=== PATIENT | male | born 1955 | race Caucasian/White ===

== ENCOUNTER 2021-04-22 10:06 | Inpatient (IN) | payer OTHER ==
[2021-04-22 14:18] VITALS: BMI 22.2
[2021-04-22] MEDS ORDERED: MAGNESIUM CITRATE 300 ML BOTTLE PO PRN (16:10)
[2021-04-22] MEDS ORDERED: MAG HYDROX/AL HYDROX/SIMETH 30 ML UNIT-DOSE CUP PO PRN (16:10)
[2021-04-22] MEDS ORDERED: NICOTINE 10 MG CARTRIDGE (INHALER) IH PRN (16:10)
[2021-04-22] MEDS ORDERED: P-EPHED 60MG/TRIPROLIDI 2.5MG TABLET PO PRN (16:10)
[2021-04-22] MEDS ORDERED: guaiFENesin 200 MG/10 ML 10 ML UNIT-DOSE CUPS PO PRN (16:10)
[2021-04-22] MEDS ORDERED: ACETAMINOPHEN 325 MG TABLET (FP) PO PRN (16:10)
[2021-04-22] MEDS ORDERED: LOPERAMIDE HCL 2 MG CAPSULE PO PRN (16:10)
[2021-04-22] MEDS ORDERED: TUBERCULIN PPD 5 TU/0.1ML VIAL ID ONE ×2 (18:53→22:28)
[2021-04-22] MEDS: hydrOXYzine PAMOATE 25 MG CAPSULE (FP) PO SCH ×2 (19:18→21:24)
[2021-04-22] MEDS: BUDESONIDE/FORMETEROL FUMARATE 80/4.5 mcg INHALER IH SCH (21:24)
[2021-04-22] MEDS: THIAMINE HCL 100 MG TABLET (FP) PO SCH (21:24)
[2021-04-22] MEDS: MELATONIN 5 MG TABLETS PO SCH (21:24)
[2021-04-23] MEDS: hydrOXYzine PAMOATE 25 MG CAPSULE (FP) PO SCH ×5 (06:39→22:11)
[2021-04-23] MEDS ORDERED: PT OWN MED DRAWER 7, Y5N ONE ×2 (07:20→08:48)
[2021-04-23] MEDS ORDERED: ALBUTEROL SO4 HFA INHALER IH ONE (07:22)
[2021-04-23] MEDS: ALBUTEROL SO4 HFA INHALER IH PRN (07:22)
[2021-04-23] MEDS: PRENATAL VITAMINS W/ FOLIC ACID TABLET (FP) PO SCH (09:36)
[2021-04-23] MEDS: NICOTINE 7 MG/24 HOURS TOPICAL PATCH TD SCH (09:37)
[2021-04-23] MEDS: BUDESONIDE/FORMETEROL FUMARATE 80/4.5 mcg INHALER IH SCH ×2 (09:37→22:11)
[2021-04-23] MEDS: predniSONE 20 MG TABLET (UD) PO SCH (10:54)
[2021-04-23] MEDS ORDERED: PNEUMOC 13-VAL CONJ-DIP CRM/PF 0.5 ML DISP.SYRIN IM ONE (12:00)
[2021-04-23] MEDS ORDERED: NICOTINE POLACRILEX 4 MG GUM BUC PRN (20:36)
[2021-04-23] MEDS: MELATONIN 5 MG TABLETS PO SCH (22:11)
[2021-04-23] MEDS: THIAMINE HCL 100 MG TABLET (FP) PO SCH (22:11)
[2021-04-24] MEDS: ALBUTEROL SO4 HFA INHALER IH PRN (07:11)
[2021-04-24] MEDS: hydrOXYzine PAMOATE 25 MG CAPSULE (FP) PO SCH ×5 (07:12→21:22)
[2021-04-24] MEDS: BUDESONIDE/FORMETEROL FUMARATE 80/4.5 mcg INHALER IH SCH ×2 (10:22→21:23)
[2021-04-24] MEDS: PRENATAL VITAMINS W/ FOLIC ACID TABLET (FP) PO SCH (10:23)
[2021-04-24] MEDS: BACITRACIN 0.9 GM PACKET TP SCH (10:25)
[2021-04-24] MEDS: GABAPENTIN 100 MG CAPSULE PO SCH ×3 (10:25→21:23)
[2021-04-24] MEDS: NICOTINE 7 MG/24 HOURS TOPICAL PATCH TD SCH (10:26)
[2021-04-24] MEDS: predniSONE 20 MG TABLET (UD) PO SCH (12:11)
[2021-04-24] MEDS: MAGNESIUM HYDROX 2400MG/30ML ORAL SUSPENSION 30 ML CUP PO PRN (12:36)
[2021-04-24] MEDS ORDERED: GABAPENTIN 100 MG CAPSULE PO SCH (14:00)
[2021-04-24] MEDS: IBUPROFEN 400 MG TABLET (FP) PO PRN (15:06)
[2021-04-24 18:24] LABS: HEMOGLOBIN 12.8 GM/dL (11.7-16.9); MCH 34.1 pg (25.7-33.7); MCHC 34.6 g/dl (32.0-35.9); MEAN CELL VOLUME 98.7 fl (80-96); MEAN PLT VOLUME 9.5 fl (7.5-11.1); PLATELET COUNT 159 10^3/uL (134-434); RBC 3.75 M/mm3 (4.00-5.60); RDW 13.2 % (11.9-15.9); WHITE BLOOD COUNT 8.8 K/mm3 (4.0-10.0)
[2021-04-24 18:42] LABS: CALCIUM 8.3 mg/dL (8.5-10.1)
[2021-04-24 18:43] LABS: ALBUMIN 3.1 g/dl (3.4-5.0)
[2021-04-24 18:46] LABS: CREATININE 0.7 mg/dL (0.55-1.3)
[2021-04-24 18:47] LABS: BILIRUBIN,TOTAL 0.4 mg/dL (0.2-1); TOT PROT 5.9 g/dl (6.4-8.2)
[2021-04-24 19:13] LABS: SYPHILIS W/ RPR CONF NON-REACTIVE (NONREACTIVE)
[2021-04-24 19:42] LABS: HIV INTERPRETATION NEGATIVE (NEGATIVE)
[2021-04-24] MEDS: THIAMINE HCL 100 MG TABLET (FP) PO SCH (21:22)
[2021-04-24] MEDS: MELATONIN 5 MG TABLETS PO SCH (21:22)
[2021-04-25] MEDS: hydrOXYzine PAMOATE 25 MG CAPSULE (FP) PO SCH ×5 (06:02→21:20)
[2021-04-25] MEDS: GABAPENTIN 100 MG CAPSULE PO SCH ×3 (06:02→21:20)
[2021-04-25] MEDS: BACITRACIN 0.9 GM PACKET TP SCH (09:51)
[2021-04-25] MEDS: NICOTINE 7 MG/24 HOURS TOPICAL PATCH TD SCH (09:51)
[2021-04-25] MEDS: BUDESONIDE/FORMETEROL FUMARATE 80/4.5 mcg INHALER IH SCH ×2 (09:51→21:21)
[2021-04-25] MEDS: PRENATAL VITAMINS W/ FOLIC ACID TABLET (FP) PO SCH (09:52)
[2021-04-25] MEDS: predniSONE 20 MG TABLET (UD) PO SCH (11:15)
[2021-04-25] MEDS: THIAMINE HCL 100 MG TABLET (FP) PO SCH (21:20)
[2021-04-25] MEDS: MELATONIN 5 MG TABLETS PO SCH (21:20)
[2021-04-26] MEDS: ALBUTEROL SO4 HFA INHALER IH PRN (06:23)
[2021-04-26] MEDS ORDERED: PT OWN MED DRAWER 7, Y5N ONE ×2 (06:24→19:41)
[2021-04-26] MEDS: hydrOXYzine PAMOATE 25 MG CAPSULE (FP) PO SCH ×5 (06:25→21:42)
[2021-04-26] MEDS: GABAPENTIN 100 MG CAPSULE PO SCH ×3 (06:25→21:43)
[2021-04-26] MEDS: PRENATAL VITAMINS W/ FOLIC ACID TABLET (FP) PO SCH (10:02)
[2021-04-26] MEDS: NICOTINE 7 MG/24 HOURS TOPICAL PATCH TD SCH (10:02)
[2021-04-26] MEDS: BACITRACIN 0.9 GM PACKET TP SCH (10:03)
[2021-04-26] MEDS: predniSONE 20 MG TABLET (UD) PO SCH (10:04)
[2021-04-26] MEDS: BUDESONIDE/FORMETEROL FUMARATE 80/4.5 mcg INHALER IH SCH ×2 (10:04→21:47)
[2021-04-26] MEDS: THIAMINE HCL 100 MG TABLET (FP) PO SCH (21:42)
[2021-04-26] MEDS: MELATONIN 5 MG TABLETS PO SCH (21:43)
[2021-04-27] MEDS: GABAPENTIN 100 MG CAPSULE PO SCH ×3 (06:37→21:37)
[2021-04-27] MEDS: hydrOXYzine PAMOATE 25 MG CAPSULE (FP) PO SCH ×5 (06:37→21:37)
[2021-04-27] MEDS: ALBUTEROL SO4 HFA INHALER IH PRN ×2 (06:39→17:56)
[2021-04-27] MEDS: predniSONE 20 MG TABLET (UD) PO SCH (10:19)
[2021-04-27] MEDS: PRENATAL VITAMINS W/ FOLIC ACID TABLET (FP) PO SCH (10:19)
[2021-04-27] MEDS: NICOTINE 7 MG/24 HOURS TOPICAL PATCH TD SCH (10:20)
[2021-04-27] MEDS: BACITRACIN 0.9 GM PACKET TP SCH (10:20)
[2021-04-27] MEDS: BUDESONIDE/FORMETEROL FUMARATE 80/4.5 mcg INHALER IH SCH ×2 (10:21→21:37)
[2021-04-27] MEDS: IBUPROFEN 400 MG TABLET (FP) PO PRN (14:13)
[2021-04-27] MEDS: MAGNESIUM HYDROX 2400MG/30ML ORAL SUSPENSION 30 ML CUP PO PRN (15:20)
[2021-04-27] MEDS ORDERED: cloNIDine HCL 0.1 MG TABLET PO PRN (15:53)
[2021-04-27] MEDS: MELATONIN 5 MG TABLETS PO SCH (21:36)
[2021-04-27] MEDS: THIAMINE HCL 100 MG TABLET (FP) PO SCH (21:36)
[2021-04-28] MEDS: ALBUTEROL SO4 HFA INHALER IH PRN (06:09)
[2021-04-28] MEDS: hydrOXYzine PAMOATE 25 MG CAPSULE (FP) PO SCH ×5 (06:09→22:10)
[2021-04-28] MEDS: GABAPENTIN 100 MG CAPSULE PO SCH ×3 (06:10→22:10)
[2021-04-28] MEDS: NICOTINE 7 MG/24 HOURS TOPICAL PATCH TD SCH (10:19)
[2021-04-28] MEDS: BACITRACIN 0.9 GM PACKET TP SCH (10:19)
[2021-04-28] MEDS: BUDESONIDE/FORMETEROL FUMARATE 80/4.5 mcg INHALER IH SCH ×2 (10:19→22:23)
[2021-04-28] MEDS: PRENATAL VITAMINS W/ FOLIC ACID TABLET (FP) PO SCH (10:19)
[2021-04-28] MEDS: predniSONE 20 MG TABLET (UD) PO SCH (10:20)
[2021-04-28] MEDS: IBUPROFEN 400 MG TABLET (FP) PO PRN (10:21)
[2021-04-28] MEDS ORDERED: METHOCARBAMOL 500 MG TABLET PO PRN (10:28)
[2021-04-28] MEDS ORDERED: PT OWN MED DRAWER 7, Y5N ONE (10:29)
[2021-04-28] MEDS ORDERED: NAPROXEN 500 MG TABLET PO PRN (12:45)
[2021-04-28] MEDS: ASPIRIN COATED 81 MG TABLET.EC PO SCH (14:22)
[2021-04-28] MEDS: METHYL SALICYLATE/MENTHOL OINT 30 GM TUBE TP SCH ×2 (14:22→22:11)
[2021-04-28] MEDS: MELATONIN 5 MG TABLETS PO SCH (22:08)
[2021-04-28] MEDS: THIAMINE HCL 100 MG TABLET (FP) PO SCH (22:10)
[2021-04-29] MEDS: GABAPENTIN 100 MG CAPSULE PO SCH ×3 (07:11→22:32)
[2021-04-29] MEDS: hydrOXYzine PAMOATE 25 MG CAPSULE (FP) PO SCH ×5 (07:12→22:33)
[2021-04-29] MEDS ORDERED: PT OWN MED DRAWER 7, Y5N ONE (08:38)
[2021-04-29] MEDS: ALBUTEROL SO4 HFA INHALER IH PRN (08:38)
[2021-04-29] MEDS: LISINOPRIL 5 MG TABLET PO SCH (09:54)
[2021-04-29] MEDS: ASPIRIN COATED 81 MG TABLET.EC PO SCH (09:54)
[2021-04-29] MEDS: amLODIPine BESYLATE 5 MG TABLET (FP) PO SCH (09:54)
[2021-04-29] MEDS: BUDESONIDE/FORMETEROL FUMARATE 80/4.5 mcg INHALER IH SCH ×2 (09:55→22:33)
[2021-04-29] MEDS: BACITRACIN 0.9 GM PACKET TP SCH (09:55)
[2021-04-29] MEDS: NICOTINE 7 MG/24 HOURS TOPICAL PATCH TD SCH (09:56)
[2021-04-29] MEDS: METHYL SALICYLATE/MENTHOL OINT 30 GM TUBE TP SCH ×2 (09:57→22:33)
[2021-04-29] MEDS: predniSONE 20 MG TABLET (UD) PO SCH (09:57)
[2021-04-29] MEDS: PRENATAL VITAMINS W/ FOLIC ACID TABLET (FP) PO SCH (09:58)
[2021-04-29] MEDS ORDERED: cloNIDine HCL 0.1 MG TABLET PO ONE (14:31)
[2021-04-29] MEDS: THIAMINE HCL 100 MG TABLET (FP) PO SCH (22:32)
[2021-04-29] MEDS: MELATONIN 5 MG TABLETS PO SCH (22:32)
[2021-04-30] MEDS: ALBUTEROL SO4 HFA INHALER IH PRN (05:56)
[2021-04-30] MEDS: hydrOXYzine PAMOATE 25 MG CAPSULE (FP) PO SCH ×5 (05:57→22:15)
[2021-04-30] MEDS: GABAPENTIN 100 MG CAPSULE PO SCH ×3 (05:57→22:15)
[2021-04-30] MEDS ORDERED: PT OWN MED DRAWER 7, Y5N ONE (08:44)
[2021-04-30] MEDS: LISINOPRIL 5 MG TABLET PO SCH (09:39)
[2021-04-30] MEDS: BUDESONIDE/FORMETEROL FUMARATE 80/4.5 mcg INHALER IH SCH ×2 (09:39→22:15)
[2021-04-30] MEDS: BACITRACIN 0.9 GM PACKET TP SCH (09:39)
[2021-04-30] MEDS: ASPIRIN COATED 81 MG TABLET.EC PO SCH (09:39)
[2021-04-30] MEDS: amLODIPine BESYLATE 5 MG TABLET (FP) PO SCH (09:39)
[2021-04-30] MEDS: PRENATAL VITAMINS W/ FOLIC ACID TABLET (FP) PO SCH (09:40)
[2021-04-30] MEDS: METHYL SALICYLATE/MENTHOL OINT 30 GM TUBE TP SCH ×2 (09:40→22:15)
[2021-04-30] MEDS: NICOTINE 7 MG/24 HOURS TOPICAL PATCH TD SCH (09:40)
[2021-04-30] MEDS ORDERED: cloNIDine HCL 0.1 MG TABLET PO ONE (13:00)
[2021-04-30] MEDS: THIAMINE HCL 100 MG TABLET (FP) PO SCH (22:15)
[2021-04-30] MEDS: MELATONIN 5 MG TABLETS PO SCH (22:15)
[2021-05-01] MEDS: GABAPENTIN 100 MG CAPSULE PO SCH ×3 (06:26→21:18)
[2021-05-01] MEDS: hydrOXYzine PAMOATE 25 MG CAPSULE (FP) PO SCH ×5 (06:26→21:20)
[2021-05-01] MEDS: PRENATAL VITAMINS W/ FOLIC ACID TABLET (FP) PO SCH (09:40)
[2021-05-01] MEDS: METHYL SALICYLATE/MENTHOL OINT 30 GM TUBE TP SCH ×2 (09:41→21:20)
[2021-05-01] MEDS: amLODIPine BESYLATE 5 MG TABLET (FP) PO SCH (09:41)
[2021-05-01] MEDS: ASPIRIN COATED 81 MG TABLET.EC PO SCH (09:41)
[2021-05-01] MEDS: LISINOPRIL 5 MG TABLET PO SCH (09:41)
[2021-05-01] MEDS: BUDESONIDE/FORMETEROL FUMARATE 80/4.5 mcg INHALER IH SCH ×2 (09:41→21:19)
[2021-05-01] MEDS: NICOTINE 7 MG/24 HOURS TOPICAL PATCH TD SCH (09:41)
[2021-05-01] MEDS: BACITRACIN 0.9 GM PACKET TP SCH (09:42)
[2021-05-01] MEDS: MELATONIN 5 MG TABLETS PO SCH (21:18)
[2021-05-01] MEDS: THIAMINE HCL 100 MG TABLET (FP) PO SCH (21:19)
[2021-05-02] MEDS: hydrOXYzine PAMOATE 25 MG CAPSULE (FP) PO SCH ×5 (06:54→21:17)
[2021-05-02] MEDS: GABAPENTIN 100 MG CAPSULE PO SCH ×3 (06:54→21:17)
[2021-05-02] MEDS: PRENATAL VITAMINS W/ FOLIC ACID TABLET (FP) PO SCH (09:44)
[2021-05-02] MEDS: BUDESONIDE/FORMETEROL FUMARATE 80/4.5 mcg INHALER IH SCH ×2 (09:45→21:17)
[2021-05-02] MEDS: METHYL SALICYLATE/MENTHOL OINT 30 GM TUBE TP SCH ×2 (09:45→21:17)
[2021-05-02] MEDS: BACITRACIN 0.9 GM PACKET TP SCH (09:45)
[2021-05-02] MEDS: NICOTINE 7 MG/24 HOURS TOPICAL PATCH TD SCH (09:46)
[2021-05-02] MEDS: LISINOPRIL 5 MG TABLET PO SCH (09:46)
[2021-05-02] MEDS: ASPIRIN COATED 81 MG TABLET.EC PO SCH (09:46)
[2021-05-02] MEDS: amLODIPine BESYLATE 5 MG TABLET (FP) PO SCH (09:46)
[2021-05-02] MEDS ORDERED: PT OWN MED DRAWER 7, Y5N ONE (19:20)
[2021-05-02] MEDS: THIAMINE HCL 100 MG TABLET (FP) PO SCH (21:17)
[2021-05-02] MEDS: MELATONIN 5 MG TABLETS PO SCH (21:17)
[2021-05-02] MEDS ORDERED: SUVOREXANT 5 MG TABLET PO PRN (22:00)
[2021-05-03] MEDS: GABAPENTIN 100 MG CAPSULE PO SCH ×3 (06:06→21:12)
[2021-05-03] MEDS: hydrOXYzine PAMOATE 25 MG CAPSULE (FP) PO SCH ×5 (06:06→21:11)
[2021-05-03] MEDS: LISINOPRIL 5 MG TABLET PO SCH (09:37)
[2021-05-03] MEDS: BUDESONIDE/FORMETEROL FUMARATE 80/4.5 mcg INHALER IH SCH ×2 (09:37→21:12)
[2021-05-03] MEDS: amLODIPine BESYLATE 5 MG TABLET (FP) PO SCH (09:37)
[2021-05-03] MEDS: BACITRACIN 0.9 GM PACKET TP SCH (09:37)
[2021-05-03] MEDS: NICOTINE 7 MG/24 HOURS TOPICAL PATCH TD SCH (09:37)
[2021-05-03] MEDS: METHYL SALICYLATE/MENTHOL OINT 30 GM TUBE TP SCH ×2 (09:37→21:12)
[2021-05-03] MEDS: ASPIRIN COATED 81 MG TABLET.EC PO SCH (09:37)
[2021-05-03] MEDS: PRENATAL VITAMINS W/ FOLIC ACID TABLET (FP) PO SCH (09:37)
[2021-05-03] MEDS: MELATONIN 5 MG TABLETS PO SCH (21:11)
[2021-05-03] MEDS: THIAMINE HCL 100 MG TABLET (FP) PO SCH (21:11)
[2021-05-03 21:20] LABS: PH,URINE 5.5 (5.0-8.0); URINE APPEARANCE CLEAR; URINE BILIRUBIN NEGATIVE (NEGATIVE); URINE COLOR YELLOW; URINE GLUCOSE (UA) NEGATIVE (NEGATIVE); URINE KETONE NEGATIVE (NEGATIVE); URINE LEUK ESTERASE NEGATIVE (NEGATIVE); URINE NITRITE NEGATIVE (NEGATIVE); URINE PROTEIN NEGATIVE (NEGATIVE); URINE UROBILINOGEN 0.2 mg/dL (0.2-1.0)
[2021-05-04] MEDS: hydrOXYzine PAMOATE 25 MG CAPSULE (FP) PO SCH ×2 (06:02→10:21)
[2021-05-04] MEDS: GABAPENTIN 100 MG CAPSULE PO SCH (06:02)
[2021-05-04 07:06] VITALS: TEMP 96.9
[2021-05-04 09:57] VITALS: BP 139/67; PULSE 94
[2021-05-04] MEDS ORDERED: amLODIPine BESYLATE 10 MG TABLET (FP) PO SCH (10:00)
[2021-05-04] MEDS: PRENATAL VITAMINS W/ FOLIC ACID TABLET (FP) PO SCH (10:19)
[2021-05-04] MEDS: NICOTINE 7 MG/24 HOURS TOPICAL PATCH TD SCH (10:20)
[2021-05-04] MEDS: ASPIRIN COATED 81 MG TABLET.EC PO SCH (10:20)
[2021-05-04] MEDS: LISINOPRIL 5 MG TABLET PO SCH (10:20)
[2021-05-04] MEDS: BUDESONIDE/FORMETEROL FUMARATE 80/4.5 mcg INHALER IH SCH (10:20)
[2021-05-04] MEDS: METHYL SALICYLATE/MENTHOL OINT 30 GM TUBE TP SCH (10:21)
[2021-05-04] MEDS: BACITRACIN 0.9 GM PACKET TP SCH (10:21)
== END 2021-05-04 10:50 | disposition home or self-care (01) | DRG 772 ==
LOC: YASAS 10:06 → Y5N 17:20
PROVIDERS: ADMIT Allergy & Immunology; ATTEND Allergy & Immunology
PROC: HZ42ZZZ Group Counseling for Substance Abuse Treatment, Cognitive-Behavioral (ICD-10-PCS; principal; 2021-04-22)
DX: F10.20 Alcohol dependence, uncomplicated (principal); F12.20 Cannabis dependence, uncomplicated; F17.210 Nicotine dependence, cigarettes, uncomplicated; F19.24 Other psychoactive substance dependence with psychoactive substance-induced mood disorder; F32.9 Major depressive disorder, single episode, unspecified; G47.00 Insomnia, unspecified; G62.9 Polyneuropathy, unspecified; J45.909 Unspecified asthma, uncomplicated; M54.5 Low back pain; G89.29 Other chronic pain; R26.89 Other abnormalities of gait and mobility; Z99.89 Dependence on other enabling machines and devices; Z59.0 Homelessness; Z56.0 Unemployment, unspecified
CPT/HCPCS: 36415; 73630-TC-LT; 80053; 81003; 85027; 86780; 86803; 87389; 90670; C9803; J0735; U0003; U0005